=== PATIENT | female | born 1975 | race Caucasian/White ===

== ENCOUNTER 2017-02-15 15:49 | Emergency (ER) | payer OTHER ==
[2017-02-15 16:23] LABS: INTERNATIONAL NORMAL RATI 1.1 UNITS (-); PARTIAL THROMBO TIME 25.2 SEC (22.5-37.2); PROTIME (NOT ORD) 13.7 SEC (12.0-14.5)
== END 2017-02-15 17:10 | disposition home or self-care (01) ==
LOC: ER 15:49
PROVIDERS: Physician Assistant
PROC: 2W3RX1Z Immobilization of Left Lower Leg using Splint (ICD-10-PCS; principal; 2017-02-15)
DX: M23.92 Unspecified internal derangement of left knee (principal); W22.8XXA Striking against or struck by other objects, initial encounter
CPT/HCPCS: 73560-LT; 85610; 85730; 96372; 99284